=== PATIENT | male | born 1995 | race African-American/Black ===

== ENCOUNTER 2017-07-23 01:30 | Emergency (ER) | END 2017-07-23 04:42 | disposition home or self-care (01) ==

== ENCOUNTER 2017-11-03 03:20 | Emergency (ER) | END 2017-11-03 04:30 | disposition home or self-care (01) ==

== ENCOUNTER → 2017-11-05 | Emergency (ER) | END | disposition left against medical advice (07) ==

== ENCOUNTER 2017-11-12 13:46 | Emergency (ER) | END 2017-11-12 18:34 | disposition home or self-care (01) ==

== ENCOUNTER 2017-11-13 20:21 | Emergency (ER) | END 2017-11-14 00:11 | disposition home or self-care (01) ==

== ENCOUNTER 2017-12-25 22:36 | Emergency (ER) | END 2017-12-26 02:53 | disposition home or self-care (01) ==

== ENCOUNTER 2018-03-01 02:16 | Emergency (ER) | END 2018-03-01 06:23 | disposition home or self-care (01) ==

== ENCOUNTER 2018-03-02 05:53 | Emergency (ER) | END 2018-03-02 07:44 | disposition home or self-care (01) ==

== ENCOUNTER 2018-12-03 13:34 | Emergency (ER) | payer BC ==
[~2018-12-03] VITALS: Ht 175.3 cm; Wt 73.9 kg
[~2018-12-03 13:34] MED LIST: CIPR500T4 PO; CLON2TAB12 PO; DIPH1TAB PO; DOXY100T20 PO; IBUP-1542 PO; IBUP-1561 PO; NAPR-688 PO; ONDA4TAB14 PO; OXYC-279 PO; QUET200T PO
[2018-12-03 13:43] VITALS: Ht 175.3 cm; Wt 73.9 kg
--- NOTE | 2018-12-03 14:15 | EN ---
Date/Time of Note Date/Time of Note DATE: 12/03/18 TIME: 14:15 ER Progress Note 23-year-old male presents for right leg pain. He states that he had x-ray done at a different hospital about a week ago and has a tib-fib fracture. He states that he is unable to get follow-up with Ortho. X-ray was ordered. Patient will need some pain medications. Medical screening exam initiated and lab/imaging tests ordered. Patient will be seen by another provider. TANNA LIN DO Dec 03, 2018 14:15
[2018-12-03] MEDS ORDERED: HYDROmorphONE 2 MG/ML SYG IM STA (15:09)
[2018-12-03] MEDS ORDERED: ONDANSETRON (ODT) 4 MG TAB ODT STA (15:09)
--- NOTE | 2018-12-03 15:26 | ERD ---
ER Documentation Chief Complaint Chief Complaint pt reported right leg swelling, did not f/u with ortho, req pain meds HPI 23-year-old male presenting with pain to the right foot. Patient sustained an fracture to his distal tibia 1 week ago. He has not followed up with Ortho as he does not have a primary doctor to obtain a referral. He ran out of his pain medication and states he is in significant pain. He denies any numbness or tingling. Denies other medical problems. NKDA. Surgical history denies. Social history ROS All systems reviewed and are negative except as per history of present illness. Medications Home Meds Active Scripts Oxycodone HCl/Acetaminophen (Percocet 5-325 mg Tablet) 1 Each Tablet, 1 EACH PO DAILY, #10 TAB Prov:MEÑO JARAMILLO PA-C 12/03/18 Ibuprofen* (Motrin*) 400 Mg Tab, 400 MG PO Q6, #30 TAB Prov:VINCE DUNCAN PA-C 03/02/18 Doxycycline Hyclate* (Doxycycline Hyclate*) 100 Mg Tablet.dr, 100 MG PO BID for 7 Days, #14 TAB Prov:HEAVEN BURCH 03/01/18 Ibuprofen* (Motrin*) 600 Mg Tab, 600 MG PO Q6, #30 TAB Prov:LOPEZ SOUTH PA-C 12/26/17 Ciprofloxacin Hcl* (Ciprofloxacin Hcl*) 500 Mg Tablet, 500 MG PO BID for 7 Days, TAB Prov:LOPEZ SOUTH PA-C 12/26/17 Diphenoxylate HCl/Atropine (Lomotil 2.5-0.025 mg Tablet) 1 Each Tablet, 1 TAB PO Q6H PRN for DIARRHEA, #5 TAB Prov:HAYES ARVIZU DO 11/13/17 Naproxen* (Naproxen*) 500 Mg Tablet, 500 MG PO BID PRN for PAIN, #20 TAB Prov:HAYES ARVIZU DO 11/13/17 Ondansetron (Ondansetron Odt) 4 Mg Tab.rapdis, 4 MG PO Q6H PRN for NAUSEA AND/OR VOMITING, #10 TAB Prov:HAYES ARVIZU DO 11/13/17 Clonazepam* (Clonazepam*) 2 Mg Tablet, 2 MG PO TID PRN for ANXIETY, #3 TAB Prov:KENROY LINDA 11/12/17 Quetiapine Fumarate* (Seroquel*) 200 Mg Tablet, 200 MG PO TID, #15 TAB Prov:KAYKAY DELEON CABRERA TKimber ZEE 07/23/17 Allergies Allergies: Coded Allergies: naloxone (Verified Allergy, Unknown, 12/03/18) PMhx/Soc Medical and Surgical Hx: pt denies Surgical Hx History of Surgery: No Anesthesia Reaction: No Hx Neurological Disorder: No Hx Respiratory Disorders: Yes (asthma) Hx Cardiac Disorders: No Hx Psychiatric Problems: Yes (PTSD,Panic attacks) Hx Miscellaneous Medical Probl: No Hx Alcohol Use: No Hx Substance Use: Yes (Marijuana) Hx Tobacco Use: Yes Smoking Status: Current every day smoker FmHx Family History: No diabetes, No coronary disease, No other Physical Exam Vitals Vital Signs Date Temp Pulse Resp B/P (MAP) Pulse Ox O2 O2 Flow FiO2 Time Delivery Rate 12/03/18 98.0 69 16 133/65 99 13:43 (87) Physical Exam GENERAL: The patient is well-appearing, well-nourished, in no acute distress CHEST: Clear to auscultation bilaterally. There are no rales, wheezes or rhonchi. HEART: Regular rate and rhythm. No murmurs, clicks, rubs or gallops. EXTREMITIES: Pain to the distal ankle. Mild swelling. No range of motion secondary to pain. Distal pulses intact. Compartments soft. Cap refill less than 2 seconds. NEUROLOGIC: Alert and oriented. Cranial nerves II through XII intact. Motor strength in all 4 extremities with 5 out of 5 strength. Sensation grossly intact. SKIN: There is no apparent rash or petechiae. The skin is warm and dry. Results 24 hrs Current Medications Medications Dose Sig/Mathieu Start Time Status Last (Trade) Ordered Route PRN Stop Time Admin Dose Reason Admin 1 mg ONCE STAT 12/03/18 DC Hydromorphone IM 15:09 HCl 12/03/18 15:10 (Dilaudid) Ondansetron 4 mg ONCE STAT 12/03/18 DC HCl (Zofran ODT 15:09 Odt) 12/03/18 15:10 Procedures/MDM DIAGNOSTIC IMAGING REPORT Patient: TESSY LARA : 1995 Age: 23 Sex: M MR #: [id number] DOS: 12/03/18 1411 Ordering MD: TANNA LIN DO Location: [facility] Room/Bed: PROCEDURE: XR Right Tibia and Fibula. CLINICAL INDICATION: Right lower leg pain. TECHNIQUE: Two views. Frontal and lateral. COMPARISON: No prior studies are available for comparison. FINDINGS: There is a displaced comminuted fracture of the distal tibial metaphysis. Intra- articular extension cannot be excluded. There is associated overlying soft tissue swelling. There is no lytic or blastic lesion. There is no radiopaque foreign body. IMPRESSION: There is a displaced comminuted fracture of the distal tibial metaphysis. Intra- articular extension cannot be excluded. There is associated overlying soft tissue swelling. ER Course: Dilaudid given in ED. MDM: 23-year-old male presenting with pain due to ankle fracture. Patient has significant fracture noted with no signs of compartment syndrome vascular injury. Patient is told to follow-up with orthopedics immediately for consultation and determine if he requires surgical intervention. Patient is discharged with supportive medications to alleviate his pain however told to follow-up with Ortho in the next 1 to 2 days. All questions answered at discharge Departure Diagnosis: Primary Impression: Ankle fracture Condition: Stable Patient Instructions: Fracture, Ankle (General) Referrals: [facility] YOU HAVE RECEIVED A MEDICAL SCREENING EXAM AND THE RESULTS INDICATE THAT YOU DO NOT HAVE A CONDITION THAT REQUIRES URGENT TREATMENT IN THE EMERGENCY DEPARTMENT. FURTHER EVALUATION AND TREATMENT OF YOUR CONDITION CAN WAIT UNTIL YOU ARE SEEN IN YOUR DOCTORS OFFICE WITHIN THE NEXT 1-2 DAYS. IT IS YOUR RESPONSIBILITY TO MAKE AN APPOINTMENT FOR FOLOW-UP CARE. IF YOU HAVE A PRIMARY DOCTOR --you should call your primary doctor and schedule an appointment IF YOU DO NOT HAVE A PRIMARY DOCTOR YOU CAN CALL OUR PHYSICIAN REFERRAL HOTLINE AT IF YOU CAN NOT AFFORD TO SEE A PHYSICIAN YOU CAN CHOSE FROM THE FOLLOWING [facility] [address] [facility] [address] [facility] [facility] [address] [facility] [address] [facility] [address] [facility] [facility] [address] Additional Instructions: FOLLOW UP WITH YOUR PRIMARY CARE PHYSICIAN TOMORROW.Return to this facility if you are not improving as expected. MEÑO JARAMILLO PA-C Dec 03, 2018 15:26
[2018-12-03 16:07] VITALS: BP 118/65; PULSE 72; RESP 20
== END 2018-12-03 16:08 | disposition home or self-care (01) ==
LOC: E/R 13:34 → FTE 16:08
DX: S82.301A Unspecified fracture of lower end of right tibia, initial encounter for closed fracture (principal); J45.909 Unspecified asthma, uncomplicated; F17.210 Nicotine dependence, cigarettes, uncomplicated; X58.XXXA Exposure to other specified factors, initial encounter; Y92.9 Unspecified place or not applicable
CPT/HCPCS: 73590; 96372; 99284; J1170

== ENCOUNTER 2019-03-04 16:11 | Emergency (ER) | payer BC ==
[~2019-03-04] VITALS: Ht 170.2 cm; Wt 72.0 kg
[~2019-03-04 16:11] MED LIST changes: +ALBU18HF INHALATION; +DOXY-214 PO; -DOXY100T20 PO; +HYDR-3980 PO; +NALO4SPR NS; +PENI500T PO; +PRED20TA PO
[2019-03-04 16:18] VITALS: BP 134/77; PULSE 92; RESP 20; Ht 170.2 cm; Wt 72.0 kg
== END 2019-03-04 17:07 | disposition home or self-care (01) ==
LOC: E/R 16:11
DX: K04.7 Periapical abscess without sinus (principal); J45.901 Unspecified asthma with (acute) exacerbation; F17.210 Nicotine dependence, cigarettes, uncomplicated
CPT/HCPCS: 99283